=== PATIENT | male | born 2000 | race Caucasian/White ===

== ENCOUNTER 2020-12-30 09:21 | Inpatient (IN) ==
[2020-12-30] MEDS ORDERED: cefTRIAXone SODIUM 2,000 MG/70 ML BAG IV STA (10:35)
--- NOTE | 2020-12-30 10:35 | Emergency Department Note ---
Impression & Plan Preseptal cellulitis of right eye, Facial abscess ED Provider Note NAME: JACK MEHTA AGE: 20 SEX: M : 2000 ARRIVES VIA: Walk-In INFORMANT: Patient ED PROVIDER(S): Alvin Rey DO CHIEF COMPLAINT: right facial swelling HPI: Patient is a 18-year-old male who presents the ER for swelling around his right eye. This started last night. He noticed a bump with swelling at the bridge of his nose this past Tuesday. It has progressed from there. He denies any fevers. No pain with range of motion of his eye. No headache. No chest pain shortness of breath nausea vomiting or diarrhea. No other exacerbating or remitting factors. He notes he cannot see due to the swelling but if he cries his eyes open he has no change in vision. No pain in the mouth. ROS: See above HPI for pertinent positives & negatives. A total of 10 systems reviewed and were otherwise negative. PAST MEDICAL HISTORY:See Below PAST SURGICAL HISTORY:See Below FAMILY HISTORY:See Below SOCIAL HISTORY:See Below HOME MEDICATIONS:See Below ALLERGIES:See Below VITALS:See Below PHYSICAL EXAMINATION: GENERAL: Sitting up in bed, alert, well appearing, well nourished, no distress, non-toxic FACE: Swelling around the right orbit and over the bridge of the nose. Right eye completely swollen shut. Has some swelling coming down the right anterior cheek. Mild erythema over right upper orbit and over the anterior cheek as well as the bridge of the nose. Slightly painful to palpation. EYE EXAM: normal conjunctiva. PERRL and EOM's grossly intact. OROPHARYNX: no exudate, no erythema, lips, buccal mucosa, and tongue normal and mucous membranes are moist LUNGS: Clear to auscultation. Normal chest wall mechanics HEART: no murmurs, S1 normal and S2 normal ABDOMEN: abdomen soft, non-tender, normo-active bowel sounds, no masses, no rebound or guarding. UPPER EXTREMITIES: upper extremities are grossly normal. LOWER EXTREMITIES: No pitting edema. NEURO EXAM: Normal sensorium, cranial nerves II-XII grossly intact, normal speech, no gross weakness of arms, no gross weakness of legs. MEDICAL DECISION MAKING: Patient is a 18-year-old male who presents the ER for right preseptal cellulitis referred in by [facility]. On exam he is unable to open his right eye due to swelling. Does appear to have an abscess on the bridge of his nose. IV estab lished blood work was obtained.Labs showed no significant leukocytosis or anemia. BMP with LFTs bilirubin was unremarkable. Covid was negative. CT of the face confirms preseptal cellulitis with an abscess. I performed incision and drainage at bedside. Patient was given 2 g Rocephin. He was given IV fluids. Swelling improved significantly. Patient was updated bedside. Discussed the hospitalist admit to Dr. Marimar Segura for further treatment. Triage Nursing notes reviewed. Limited review of prior medical records performed Vital Signs: reviewed and remarkable for HTN Differential diagnosis: Cellulitis, abscess, MRSA infection, DVT, necrotizing fasciitis, dermatitis, drug eruption, allergic reaction, as well as other pathologies. ER treatment provided: See below Diagnostics interpreted by me: ECG: none Cardiac Monitoring: An order was placed for continuous cardiac monitoring. The monitor shows a rate of 71 with sinus rhythm. Laboratory studies: As stated above and show below. Imaging studies: CT face shows preseptal cellulitis with an abscess Consultation(s): none Procedures: Incision & Drainage Indication: Abscess. Location: Abscess over the bridge of the nose Verbal consent was obtained after the risks and benefits were explained, including but not limited to bleeding, scarring, infection, pain, and bone /joint/nerve damage. At this time, the risks of the procedure are less than the risks of NOT performing the procedure. A time out was taken and the correct patient and site identified. The skin was prepped with betadine and a sterile field set. The wound was anesthetized with 2 mL ml of 1% lidocaine. The abscess cavity was entered with a number 11 blade and green purulent material expressed. The wound was explored for foreign bodies and none found. Debridement was not performed. Detailed wound care instructions and signs and symptoms of worsening infection reviewed with the patient. No complications and the patient tolerated the procedure well. 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 Feels Safe at Home: Yes Allergies Allergies Allergy/AdvReac Type Severity Reaction Status Date / Time mushroom AdvReac Severe Anaphylaxis Unverified 12/30/20 11:55 Home Meds Home Medications Medication Instructions Recorded Confirmed cetirizine [Zyrtec] 10 mg PO QAM 12/30/20 12/30/20 epinephrine [Epi E-Z Pen] 0.3 mg IM Q4H PRN 12/30/20 12/30/20 Results & Data (ED) Vital Signs Vital Signs - 24 hr 12/30/20 09:26 12/30/20 11:13 12/30/20 12:23 Temperature 36.8 C Temperature Source Temporal Artery Scan Pulse Rate 82 Pulse Rate [Finger] 85 78 Respiratory Rate 18 16 18 Respiratory Effort / Characteristics Non-Labored Non-Labored Respiratory Depth Normal Normal Respiratory Pattern Blood Pressure 143/76 H Blood Pressure [Right Arm] 96/65 L 120/79 Blood Pressure Mean 98 Blood Pressure Mean [Right Arm] 75 92 Blood Pressure Position Sitting Blood Pressure Position [Right Arm] Pulse Oximetry 98 99 99 Oxygen Delivery Method Room Air Room Air Sepsis Recent Fever Within 48 Hours No Sepsis New/Unexplained Change in Mental Status No Sepsis Action Taken by Nursing No Action Required 12/30/20 14:05 12/30/20 15:42 Temperature Temperature Source Pulse Rate Pulse Rate [Finger] 79 74 Respiratory Rate 20 18 Respiratory Effort / Characteristics Non-Labored Spontaneous Non-Labored Spontaneous Respiratory Depth Normal Normal Respiratory Pattern Regular Blood Pressure Blood Pressure [Right Arm] 112/70 125/73 Blood Pressure Mean Blood Pressure Mean [Right Arm] 84 90 Blood Pressure Position Blood Pressure Position [Right Arm] Sitting Pulse Oximetry 100 99 Oxygen Delivery Method Room Air Room Air Sepsis Recent Fever Within 48 Hours Sepsis New/Unexplained Change in Mental Status Sepsis Action Taken by Nursing Laboratory Data Result diagrams: 12/30/20 10:32 12/30/20 10:32 Lab Results 12/30/20 12/30/20 12/30/20 Range/Units 10:32 10:32 12:24 WBC 7.21 (4.8-10.8) K/uL RBC 4.99 (4.7-6.1) M/uL Hgb 14.6 (14.0-18.0) g/dL Hct 43.1 (42-52) % MCV 86.4 (80-100) fL MCH 29.3 (25-34) pg MCHC 33.9 (32-36) g/dL RDW Std Deviation 40.9 (36.4-46.3) fL RDW Coeff of Emile 12.9 (11.5-14.5) % Plt Count 288 (130-400) K/uL MPV 8.8 (7.4-10.4) fL Immature Gran % (Auto) 0.3 % Neut % (Auto) 62.4 % Lymph % (Auto) 26.5 % [place] % (Auto) 8.3 % Eos % (Auto) 2.4 % Baso % (Auto) 0.1 % Neut # (Auto) 4.50 (1.4-6.5) K/uL Lymph # (Auto) 1.91 (1.2-3.4) K/uL [place] # (Auto) 0.60 H (0.11-0.59) K/uL Eos # (Auto) 0.17 (0-0.5) K/uL Baso # (Auto) 0.01 (0-0.2) K/uL Immature Gran # (Auto) 0.02 (0.00-0.02) K/uL Sodium 138 (136-145) mmol/L Potassium 4.5 (3.5-5.1) mmol/L Chloride 106 (98-107) mmol/L Carbon Dioxide 30 (21-32) mmol/L Anion Gap 2.0 L (3-11) BUN 14 (7-18) mg/dl Creatinine 0.68 (0.6-1.4) mg/dl Est Cr Clr Drug Dosing 217.6 ml/min Est GFR ( Amer) > 150.0 Est GFR (Non-Af Amer) 135.6 BUN/Creatinine Ratio 20.9 H (10-20) Glucose 93 (70-99) mg/dl Calcium 9.2 (8.5-10.1) mg/dl Total Bilirubin 0.3 (0.2-1) mg/dl AST 14 L (15-37) U/L ALT 38 (12-78) U/L Alkaline Phosphatase 131 H (45-117) U/L Total Protein 8.2 (6.4-8.2) gm/dl Albumin 4.0 (3.4-5.0) gm/dl Globulin 4.2 H (2.5-4.0) gm/dl Albumin/Globulin Ratio 1.0 (0.9-2) COVID-19 Eval Order CovFluRsv at [facility] SARS-CoV-2 (PCR) (Negative) Influenza Type A (PCR) (Neg) Influenza Type B (PCR) (Neg) RSV (RT-PCR) (Neg) 12/30/20 Range/Units 12:24 WBC (4.8-10.8) K/uL RBC (4.7-6.1) M/uL Hgb (14.0-18.0) g/dL Hct (42-52) % MCV (80-100) fL MCH (25-34) pg MCHC (32-36) g/dL RDW Std Deviation (36.4-46.3) fL RDW Coeff of Emile (11.5-14.5) % Plt Count (130-400) K/uL MPV (7.4-10.4) fL Immature Gran % (Auto) % Neut % (Auto) % Lymph % (Auto) % [place] % (Auto) % Eos % (Auto) % Baso % (Auto) % Neut # (Auto) (1.4-6.5) K/uL Lymph # (Auto) (1.2-3.4) K/uL [place] # (Auto) (0.11-0.59) K/uL Eos # (Auto) (0-0.5) K/uL Baso # (Auto) (0-0.2) K/uL Immature Gran # (Auto) (0.00-0.02) K/uL Sodium (136-145) mmol/L Potassium (3.5-5.1) mmol/L Chloride (98-107) mmol/L Carbon Dioxide (21-32) mmol/L Anion Gap (3-11) BUN (7-18) mg/dl Creatinine (0.6-1.4) mg/dl Est Cr Clr Drug Dosing ml/min Est GFR ( Amer) Est GFR (Non-Af Amer) BUN/Creatinine Ratio (10-20) Glucose (70-99) mg/dl Calcium (8.5-10.1) mg/dl Total Bilirubin (0.2-1) mg/dl AST (15-37) U/L ALT (12-78) U/L Alkaline Phosphatase (45-117) U/L Total Protein (6.4-8.2) gm/dl Albumin (3.4-5.0) gm/dl Globulin (2.5-4.0) gm/dl Albumin/Globulin Ratio (0.9-2) COVID-19 Eval Order SARS-CoV-2 (PCR) NEGATIVE (Negative) Influenza Type A (PCR) Negative (Neg) Influenza Type B (PCR) Negative (Neg) RSV (RT-PCR) Negative (Neg) Administered Medications Vancomycin HCl 2,500 mg/ (Sodium Chloride) 550 mls @ 200 mls/hr IV NOW STA Stop: 12/30/20 18:17 Last Admin: 12/30/20 15:40 Dose: 200 mls/hr Documented by: [id number] Miscellaneous Information (Vancomycin Consult Active) 1 ea N/A UD PRN PRN Reason: Consult Stop: 01/29/21 14:32 Last Admin: 12/30/20 15:40 Dose: 1 ea Documented by: [id number] Discontinued Medications Ceftriaxone Sodium (Rocephin) 2,000 mg in 70 mls @ 140 mls/hr IV NOW STA Stop: 12/30/20 11:04 Last Infusion: 12/30/20 11:20 Dose: 0 mls/hr Documented by: [id number] Admin: 12/30/20 10:51 Dose: 140 mls/hr Documented by: [id number] Ioversol (Optiray 300 100ml) 89 ml IV ONCE ONE Stop: 12/30/20 11:27 Last Admin: 12/30/20 11:26 Dose: 89 ml Documented by: [id number] Lidocaine HCl (Xylocaine 1%/Sod Bicarb 20 Ml Vial) Confirm Administered Dose 20 ml INFIL .STK-MED ONE Stop: 12/30/20 13:22 Last Admin: 12/30/20 13:46 Dose: 20 ml Documented by: [id number] Imaging Data Radiologist's Impression: Face CT 12/30/20 10:35 CT facial bones w con CLINICAL HISTORY: swelling over the face/right eye and bridge of nose COMPARISON STUDY: No previous studies for comparison. TECHNIQUE: Axial images through the face were obtained following intravenous injection of 89 cc of Optiray 300. Sagittal and coronal reconstructions were viewed. Automated exposure control was utilized for the study. A dose lowering technique was utilized adhering to the principles of ALARA. FINDINGS: Visualized portions of the intracranial contents are unremarkable. Major vasculature of the upper neck is patent. Globes are intact. There is no retrobulbar infiltration or fluid collection. Note is made of soft tissue thickening and enhancement along the medial aspect of the right orbit and right aspect of the nose centered within the right medial epicanthus and right nasolacrimal duct which is partially opacified. No post septal component is noted. Note is made of a small 6 mm rim enhancing subcutaneous fluid collection of the right upper aspect of the nose. No additional fluid collections are identified. No soft tissue gas. Left orbit is unremarkable. Minimal mucosal thickening of the right maxillary sinus is present. Mastoid air cells are clear. IMPRESSION: Moderate right preseptal inflammation as well as inflammation along the right aspect of the nose centered within the right medial epicanthus and right nasolacrimal duct which is partially opacified. Associated small 6 mm subcutaneous rim enhancing fluid collection of the right nose consistent with an abscess. Findings suggest an infectious process and may reflect right-sided dacrocystitis. No postseptal component. ACT 112: Negative or not required by law. Electronically signed by: Jaime Nichols M.D. 12/30/2020 11:59 AM Discharge Plan Visit Data Chief Complaint: Facial Injury/Pain Stated Complaint: SWELLING IN LEFT EYE ED Provider: Alvin Rey Discharge Problem: Preseptal cellulitis of right eye, Facial abscess Forms Stand Alone Forms: My [facility] Prescriptions Prescriptions: No Action cetirizine [Zyrtec] 10 mg Tablet 10 mg PO QAM RF: 0 epinephrine [Epi E-Z Pen] 0.3 mg/0.3 mL Auto-Injector 0.3 mg IM Q4H PRN (Reason: Anaphylaxis) RF: 0
[2020-12-30 10:44] LABS: Basophils # (auto) 0.01 K/uL (0-0.2); Basophils % (auto) 0.1 %; Eosinophils # (auto) 0.17 K/uL (0-0.5); Eosinophils % (auto) 2.4 %; Hematocrit (blood only) 43.1 % (42-52); Hemoglobin 14.6 g/dL (14.0-18.0); Immature Granulocytes # (auto) 0.02 K/uL (0.00-0.02); Immature Granulocytes % (auto) 0.3 %; Lymphocytes # (auto) 1.91 K/uL (1.2-3.4); Lymphocytes % (auto) 26.5 %; Mean Corpuscular Hemoglobin 29.3 pg (25-34); Mean Corpuscular Hgb Conc 33.9 g/dL (32-36); Mean Corpuscular Volume 86.4 fL (80-100); Mean Platelet Volume 8.8 fL (7.4-10.4); Monocytes % (auto) 8.3 %; Neutrophils % (auto) 62.4 %; Platelet Count 288 K/uL (130-400); RDW Coefficient of Variation 12.9 % (11.5-14.5); RDW Standard Deviation 40.9 fL (36.4-46.3); Red Blood Count 4.99 M/uL (4.7-6.1); White Blood Count 7.21 K/uL (4.8-10.8)
[2020-12-30 11:06] LABS: Alanine Aminotransferase 38 U/L (12-78); Aspartate Aminotransferase 14 U/L (15-37); BUN Creatinine Ratio 20.9 (10-20); Blood Urea Nitrogen 14 mg/dl (7-18); Calcium 9.2 mg/dl (8.5-10.1); Carbon Dioxide 30 mmol/L (21-32); Chloride 106 mmol/L (98-107); Creatinine Clr Calc Pharmacy 217.6 ml/min; Est GFR (African American) > 150.0; Est GFR (Non-African American) 135.6; Glucose 93 mg/dl (70-99); Potassium 4.5 mmol/L (3.5-5.1); Sodium 138 mmol/L (136-145)
[2020-12-30 11:09] LABS: Alkaline Phosphatase 131 U/L (45-117); Bilirubin,Total 0.3 mg/dl (0.2-1); Globulin 4.2 gm/dl (2.5-4.0); Total Protein 8.2 gm/dl (6.4-8.2)
[2020-12-30] MEDS ORDERED: OPTIRAY 300 100mL IV ONE (11:26)
--- NOTE | 2020-12-30 12:01 | CT Scan Report ---
CT facial bones w con CLINICAL HISTORY: swelling over the face/right eye and bridge of nose COMPARISON STUDY: No previous studies for comparison. TECHNIQUE: Axial images through the face were obtained following intravenous injection of 89 cc of Op tiray 300. Sagittal and coronal reconstructions were viewed. Automated exposure control was utilized for the study. A dose lowering technique was utilized adhering to the principles of ALARA. FINDINGS: Visualized portions of the intracranial contents are unremarkable. Major vasculature of the upper neck is patent. Globes are intact. There is no retrobulbar infiltration or fluid collection. N ote is made of soft tissue thickening and enhancement along the medial aspect of the right orbit and right aspect of the nose centered within the right medial epicanthus and right nasolacrimal duct whic h is partially opacified. No post septal component is noted. Note is made of a small 6 mm rim enhanci ng subcutaneous fluid collection of the right upper aspect of the nose. No additional fluid collectio ns are identified. No soft tissue gas. Left orbit is unremarkable. Minimal mucosal thickening of the right maxillary sinus is present. Mastoid air cells are clear. IMPRESSION: Moderate right preseptal inflammation as well as inflammation along the right aspect of the nose centered within the right medial epicanthus and right nasolacrimal duct which is partially o pacified. Associated small 6 mm subcutaneous rim enhancing fluid collection of the right nose consist ent with an abscess. Findings suggest an infectious process and may reflect right-sided dacrocystitis . No postseptal component. ACT 112: Negative or not required by law. Electronically signed by: Jaime Nichols M.D. 12/30/2020 11:59 AM
[2020-12-30] MEDS ORDERED: XYLOCAINE 1%/SOD BICARB 20 ML VIAL INFIL ONE (13:21)
[2020-12-30 13:38] LABS: Influenza A virus by PCR Negative (Neg); Influenza B virus by PCR Negative (Neg); RSV by PCR Negative (Neg); SARS CoV2 RNA(COVID-19) InHosp NEGATIVE (Negative)
--- NOTE | 2020-12-30 14:10 | History & Physical Report ---
Date of Service December 30, 2020 Assessment & Plan (1) Preseptal cellulitis of right eye: Patient with right sided preseptal cellulitis, likely nidus was a small pimple on right side of bridge of nose No known history of MRSA With rapid progression in the last 24 hours Not septic and currently no signs of post septal cellulitis -Admit to medical/surgical floor -Continue IV antibiotics with ceftriaxone and will add on IV vancomycin -Check MRSA swab and consider discontinuing MRSA coverage if is negative -Follow CBC, BMP in the morning -Pain control Tylenol as needed -Follow-up on wound culture collected in the ER status post incision and drainage (2) Facial abscess: As above, status post incision and drainage in the ER (3) Seasonal allergies: Continue home Zyrtec No acute issues (4) DVT prophylaxis: SCDs, ambulation Disposition-admit to medical/surgical floor History of Present Illness Chief Complaint: Facial swelling and pain Primary Care Provider: NO PCP This patient is a 20-year-old male with a history of seasonal allergies who presents to the ER with swelling around his right eye that got much worse last evening. He started to notice a little bit of swelling over the bridge of his nose 4 days ago which then rapidly progressed last night and he woke up with his right eye almost swollen shut this morning. He denies any fevers/chills. He has no pain with range of motion of the eye, no change in vision. Denies any headache or lightheadedness. He has no previous history of skin or soft tissue infections and no history of MRSA that he knows of. 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 In the ER, his laboratory work-up was fairly unremarkable, but he was noted to have a significant right periorbital facial swelling and cellulitis seen in the right aspect of the nose centered within the right medial epicanthus and right nasolacrimal duct with a small 6 mm abscess seen on CT in the right nasal area without any post septal component noted. He had an incision and drainage performed with a substantial amount of pus aspirated in the ER with Gram stain and culture sent. He was given 1 dose of IV Rocephin in the ER. He will be admitted for continued IV antibiotics for preseptal cellulitis. Allergies Allergy/AdvReac Type Severity Reaction Status Date / Time mushroom AdvReac Severe Anaphylaxis Unverified 12/30/20 11:55 Home Medications Medication Instructions Recorded Confirmed Type cetirizine [Zyrtec] 10 mg PO QAM 12/30/20 12/30/20 History epinephrine [Epi E-Z Pen] 0.3 mg IM Q4H PRN 12/30/20 12/30/20 History Past Med/Surg History Medical History Lyme arthritis Seasonal allergies Surgical History H/O tympanostomy History of wisdom tooth extraction Family History Grandfather Dementia Social History Smoking Status: Never smoker Hx Alcohol Use: Yes (social use) Hx Substance Use: No current occupational status: student 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 Feels Safe at Home: Yes Review of Systems Review of Systems: All systems reviewed & are unremarkable except as noted in HPI & below Denies fevers/chills/headache, denies chest pain or shortness of breath, no abdominal pain, no nausea or vomiting, no diarrhea or constipation, no urinary symptoms, no rashes other than face Physical Exam Constitutional: WD/WN, vitals as above + obese Eyes: PERRL, conjunctivae normal, anicteric sclerae EOM intact bilaterally (Without any pain with movement) ENMT: Ears: no hearing impairment, no external ear abnormality, no EAC abnormality and no TM abnormality Nose: + external nose abnormality Positive right periorbital edema mostly medial and some infraorbital edema and right nasal edema with mild erythema, slightly open wound status post I&D right medial nose at the bridge Neck: trachea midline, no thyromegaly Respiratory: normal respiratory effort, lungs clear to auscultation Cardiovascular: RRR, no murmur, no edema Chest (Breasts): Chest: normal inspection of chest Gastrointestinal (Abdomen): normal bowel sounds, soft, nontender, no hepatosplenomegaly Musculoskeletal: Extremities: extremities normal to inspection; no cyanosis and no clubbing Skin: no rashes, warm and dry Neurologic: moves all extremities and awake; no focal motor deficits Psychiatric: A+Ox3, euthymic affect Lymphatic: no lymphedema Results & Data Results & Data ([facility]) Vital Signs (Past 12 Hours) Vital Signs Temp Pulse Pulse Resp BP BP Pulse Ox 12/30/20 12:23 78 18 120/79 99 12/30/20 11:13 85 16 96/65 L 99 12/30/20 09:26 36.8 C 82 18 143/76 H 98 Laboratory Results Laboratory Results WBC 7.21 K/uL (4.8-10.8) 12/30/20 10:32 RBC 4.99 M/uL (4.7-6.1) 12/30/20 10:32 Hgb 14.6 g/dL (14.0-18.0) 12/30/20 10:32 Hct 43.1 % (42-52) 12/30/20 10:32 MCV 86.4 fL (80-100) 12/30/20 10:32 MCH 29.3 pg (25-34) 12/30/20 10:32 MCHC 33.9 g/dL (32-36) 12/30/20 10:32 RDW Std Deviation 40.9 fL (36.4-46.3) 12/30/20 10:32 RDW Coeff of Emile 12.9 % (11.5-14.5) 12/30/20 10:32 Plt Count 288 K/uL (130-400) 12/30/20 10:32 MPV 8.8 fL (7.4-10.4) 12/30/20 10:32 Immature Gran % (Auto) 0.3 % 12/30/20 10:32 Neut % (Auto) 62.4 % 12/30/20 10:32 Lymph % (Auto) 26.5 % 12/30/20 10:32 [place] % (Auto) 8.3 % 12/30/20 10:32 Eos % (Auto) 2.4 % 12/30/20 10:32 Baso % (Auto) 0.1 % 12/30/20 10:32 Neut # (Auto) 4.50 K/uL (1.4-6.5) 12/30/20 10:32 Lymph # (Auto) 1.91 K/uL (1.2-3.4) 12/30/20 10:32 [place] # (Auto) 0.60 K/uL (0.11-0.59) H 12/30/20 10:32 Eos # (Auto) 0.17 K/uL (0-0.5) 12/30/20 10:32 Baso # (Auto) 0.01 K/uL (0-0.2) 12/30/20 10:32 Immature Gran # (Auto) 0.02 K/uL (0.00-0.02) 12/30/20 10:32 Sodium 138 mmol/L (136-145) 12/30/20 10:32 Potassium 4.5 mmol/L (3.5-5.1) 12/30/20 10:32 Chloride 106 mmol/L (98-107) 12/30/20 10:32 Carbon Dioxide 30 mmol/L (21-32) 12/30/20 10:32 Anion Gap 2.0 (3-11) L 12/30/20 10:32 BUN 14 mg/dl (7-18) 12/30/20 10:32 Creatinine 0.68 mg/dl (0.6-1.4) 12/30/20 10:32 Est Cr Clr Drug Dosing 217.6 ml/min 12/30/20 10:32 Est GFR ( Amer) > 150.0 12/30/20 10:32 Est GFR (Non-Af Amer) 135.6 12/30/20 10:32 BUN/Creatinine Ratio 20.9 (10-20) H 12/30/20 10:32 Glucose 93 mg/dl (70-99) 12/30/20 10:32 Calcium 9.2 mg/dl (8.5-10.1) 12/30/20 10:32 Total Bilirubin 0.3 mg/dl (0.2-1) 12/30/20 10:32 AST 14 U/L (15-37) L 12/30/20 10:32 ALT 38 U/L (12-78) 12/30/20 10:32 Alkaline Phosphatase 131 U/L (45-117) H 12/30/20 10:32 Total Protein 8.2 gm/dl (6.4-8.2) 12/30/20 10:32 Albumin 4.0 gm/dl (3.4-5.0) 12/30/20 10:32 Globulin 4.2 gm/dl (2.5-4.0) H 12/30/20 10:32 Albumin/Globulin Ratio 1.0 (0.9-2) 12/30/20 10:32 COVID-19 Eval Order [facility]FluRsv at [facility] 12/30/20 12:24 SARS-CoV-2 (PCR) NEGATIVE (Negative) 12/30/20 12:24 Influenza Type A (PCR) Negative (Neg) 12/30/20 12:24 Influenza Type B (PCR) Negative (Neg) 12/30/20 12:24 RSV (RT-PCR) Negative (Neg) 12/30/20 12:[address] 12/30/20 10:35 CT facial bones w con CLINICAL HISTORY: swelling over the face/right eye and bridge of nose COMPARISON STUDY: No previous studies for comparison. TECHNIQUE: Axial images through the face were obtained following intravenous injection of 89 cc of Optiray 300. Sagittal and coronal reconstructions were viewed. Automated exposure control was utilized for the study. A dose lowering technique was utilized adhering to the principles of ALARA. FINDINGS: Visualized portions of the intracranial contents are unremarkable. Major vasculature of the upper neck is patent. Globes are intact. There is no retrobulbar infiltration or fluid collection. Note is made of soft tissue thickening and enhancement along the medial aspect of the right orbit and right aspect of the nose centered within the right medial epicanthus and right nasolacrimal duct which is partially opacified. No post septal component is noted. Note is made of a small 6 mm rim enhancing subcutaneous fluid collection of the right upper aspect of the nose. No additional fluid collections are identified. No soft tissue gas. Left orbit is unremarkable. Minimal mucosal thickening of the right maxillary sinus is present. Mastoid air cells are clear. IMPRESSION: Moderate right preseptal inflammation as well as inflammation along the right aspect of the nose centered within the right medial epicanthus and right nasolacrimal duct which is partially opacified. Associated small 6 mm subcutaneous rim enhancing fluid collection of the right nose consistent with an abscess. Findings suggest an infectious process and may reflect right-sided dacrocystitis. No postseptal component. ACT 112: Negative or not required by law. Electronically signed by: Jaime Nichols M.D. 12/30/2020 11:59 AM Code Status & VTE Plan Code Status Full code VTE Prophylaxis Plan VTE Prophylaxis will be ordered: Yes PG Care Time/CCT Total # of Minutes Spent Total Time Spent with Patient: Total time spent is greater than 50% in coordin ation of care (as documented) at patient's floor/unit and/or counseling patient: Coding Level of Care Code 84134 Initial Inpt Care Lvl 2 Diagnoses Preseptal cellulitis of right eye L03.213 Facial abscess L02.01 Seasonal allergies J30.2 DVT prophylaxis Z29.9
[2020-12-30] MEDS ORDERED: VANCOMYCIN HCL 1,000 MG in SODIUM CHLORIDE 0.9% 250 ML IV SCH (14:33)
[2020-12-30] MEDS ORDERED: VANCOMYCIN CONSULT ACTIVE PRN (14:33)
[2020-12-30] MEDS ORDERED: VANCOMYCIN HCL 2,500 MG in SODIUM CHLORIDE 0.9% 500 ML IV STA (15:33)
[2020-12-30] MEDS ORDERED: ACETAMINOPHEN 325 MG TAB PO PRN (17:20)
[2020-12-30] MEDS ORDERED: ONDANSETRON INJ 2 MG/ML 2 ML VIAL IV PRN (17:20)
[2020-12-30] MEDS ORDERED: EPINEPHrine INJ 1 MG/ML AMP IM PRN (17:20)
[2020-12-30] MEDS ORDERED: POLYETHYLENE (MIRALAX) 17 GM PACK PO PRN (17:20)
--- NOTE | 2020-12-30 18:08 | Pharmacy Report ---
Pharmacy Abx Dose Short Note - Date of Service December 30, 2020 - Assessment & Plan Assessment 20 year admitted with worsening swelling around right eye. Vancomycin and rocephin started for possible right periorbital facial swelling/cellulitis. Blood cultures x 2 are pending. Plan Vancomycin * Received loading dose of vancomycin 2500 mg x 1 in the ER (~23 mg/kg/dose) * Plan to start vancomycin 1500 (~14 mg/kg) iv q 8 hrs to achieve estimated trough ~15-20 mcg/ml (goal d/t location of cellulitis) * Estimated kinetics t1/2<8 hrs, CrCl >200 * Plan to order level if vancomycin is to be continued >48 hrs Pharmacy will continue to follow and will adjust dose/frequency as necessary. Thank you.
[2020-12-31] MEDS: VANCOMYCIN HCL 1,500 MG in SODIUM CHLORIDE 0.9% 500 ML IV SCH ×2 (00:27→08:18)
[2020-12-31 05:57] LABS: Basophils # (auto) 0.01 K/uL (0-0.2); Basophils % (auto) 0.2 %; Eosinophils % (auto) 4.1 %; Hematocrit (blood only) 40.4 % (42-52); Hemoglobin 13.6 g/dL (14.0-18.0); Lymphocytes # (auto) 1.65 K/uL (1.2-3.4); Lymphocytes % (auto) 33.7 %; Mean Corpuscular Hgb Conc 33.7 g/dL (32-36); Mean Corpuscular Volume 86.1 fL (80-100); Mean Platelet Volume 8.7 fL (7.4-10.4); Monocytes % (auto) 8.2 %; Neutrophils # (auto) 2.63 K/uL (1.4-6.5); Neutrophils % (auto) 53.8 %; Platelet Count 295 K/uL (130-400); Red Blood Count 4.69 M/uL (4.7-6.1); White Blood Count 4.89 K/uL (4.8-10.8)
[2020-12-31 06:33] LABS: BUN Creatinine Ratio 19.2 (10-20); Blood Urea Nitrogen 13 mg/dl (7-18); Calcium 9.1 mg/dl (8.5-10.1); Carbon Dioxide 27 mmol/L (21-32); Chloride 107 mmol/L (98-107); Creatinine Clr Calc Pharmacy 223.9 ml/min; Est GFR (African American) > 150.0; Est GFR (Non-African American) 137.2; Glucose 91 mg/dl (70-99); Potassium 4.1 mmol/L (3.5-5.1); Sodium 138 mmol/L (136-145)
--- NOTE | 2020-12-31 08:17 | Hospitalist Progress Note ---
Date of Service December 31, 2020 Assessment & Plan (1) Preseptal cellulitis of right eye: Patient with right sided preseptal cellulitis, likely nidus was a small pimple on right side of bridge of nose No known history of MRSA With rapid progression in the last 24 hours Not septic and currently no signs of post septal cellulitis -Admit to medical/surgical floor -Continue IV antibiotics with ceftriaxone and will add on IV vancomycin -Check MRSA swab and consider discontinuing MRSA coverage if is negative -Follow CBC, BMP in the morning -Pain control Tylenol as needed -Follow-up on wound culture collected in the ER status post incision and drainage (2) Facial abscess: As above, status post incision and drainage in the ER (3) Seasonal allergies: Continue home Zyrtec No acute issues (4) DVT prophylaxis: SCDs, ambulation Disposition-admit to medical/surgical floor Admission and Anticipated Discharge Date Admission Date: December 30, 2020 Results & Data Results & Data ([facility]) Vital Signs (Past 12 Hours) Vital Signs Temp Pulse Resp BP Pulse Ox 12/31/20 08:08 97.9 F 76 18 126/80 97 12/30/20 22:37 98.1 F 68 18 115/73 96 PG Care Time/CCT Total # of Minutes Spent Total Time Spent with Patient: Total time spent is greater than 50% in coordination of care (as documented) at patient's floor/unit and/or counseling patient: Coding Diagnoses Preseptal cellulitis of right eye L03.213 Facial abscess L02.01 Seasonal allergies J30.2 DVT prophylaxis Z29.9
[2020-12-31] MEDS ORDERED: CETIRIZINE HCL 10 MG TABLET PO SCH (09:00)
[2020-12-31] MEDS ORDERED: cefTRIAXone SODIUM 2,000 MG in DEXTROSE 5% 50 ML IV SCH ×2 (09:00→11:00)
--- NOTE | 2020-12-31 11:06 | Discharge Summary ---
Date of Service December 31, 2020 Admission HPI Per Admitting Provider This patient is a 20-year-old male with a history of seasonal allergies who presents to the ER with swelling around his right eye that got much worse last evening. He started to notice a little bit of swelling over the bridge of his nose 4 days ago which then rapidly progressed last night and he woke up with his right eye almost swollen shut this morning. He denies any fevers/chills. He has no pain with range of motion of the eye, no change in vision. Denies any headache or lightheadedness. He has no previous history of skin or soft tissue infections and no history of MRSA that he knows of. 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 In the ER, his laboratory work-up was fairly unremarkable, but he was noted to have a significant right periorbital facial swelling and cellulitis seen in the right aspect of the nose centered within the right medial epicanthus and right nasolacrimal duct with a small 6 mm abscess seen on CT in the right nasal area without any post septal component noted. He had an incision and drainage performed with a substantial amount of pus aspirated in the ER with Gram stain and culture sent. He was given 1 dose of IV Rocephin in the ER. He will be admitted for continued IV antibiotics for preseptal cellulitis. Principal Diagnosis pre septal cellulitis Discharge Exam face is slightly swollen and not erythematous or flucutant small open area the size of a pea on his nose near where it ajoins his forehead more on the right side no visual changes , can fully open eyes Discharge Data Allergies Allergy/AdvReac Type Severity Reaction Status Date / Time mushroom AdvReac Severe Anaphylaxis Unverified 12/30/20 11:55 Consultations 12/30/20 12:21 ED Decision to Admit Stat Ordered Studies 12/30/20 10:35 CT facial bones w con Stat Hospital Course (1) Preseptal cellulitis of right eye: Patient with right sided preseptal cellulitis, likely nidus was a small pimple on right side of bridge of nose No known history of MRSA With rapid progression in the last 24 hours Not septic and currently no signs of post septal cellulitis -Pain control Tylenol as needed (2) Facial abscess: As above, status post incision and drainage in the ER (3) Seasonal allergies: Continue home Zyrtec No acute issues (4) DVT prophylaxis: SCDs, ambulation Disposition-admit to medical/surgical floor Total Time Total Time Spent Total Time Spent (In Minutes): greater than 30 minutes were required to prepare discharge Discharge Plan Discharge Items Patient Disposition: Home - Self-Care Reason For Visit: PRESEPTAL CELLULITIS Discharge Diagnosis: infection of face around eye Activity: Resume your previous activity Non-emergency contact: Primary Care Provider Call non-emergency contact if: you have any medication questions and your symptoms worsen Follow-up/Referrals: PCP,NO [Primary Care Provider] - Diet: Regular Addtl Attending Provider Instructions: please wash face twice a day with a gentle soap and use antibiotic ointment to open area after drying completely, only do this while the are is open. complete all antibiotics please see [facility] this week Pending Studies at Discharge: Yes Stand-Alone Forms: My [facility] [employer], Smoking Cessation Medications and DC Order Prescriptions: New doxycycline hyclate 100 mg capsule 100 mg PO BID 10 Days Qty: 20 RF: 0 Continued cetirizine [Zyrtec] 10 mg Tablet 10 mg PO QAM RF: 0 epinephrine [Epi E-Z Pen] 0.3 mg/0.3 mL Auto-Injector 0.3 mg IM Q4H PRN (Reason: Anaphylaxis) RF: 0 Discharge Orders: Discharge Order (Routine); Ordered 12/31/20 Ordered By: Jose Sims Admission Data Admit Date/Time: 12/30/20 14:33 Attending Provider: Jose Sims Admit Provider: Marimar Segura Primary Care Provider: PCP,NO Other Providers: Marimar Segura Coding Level of Care Code D/C Day Management >30 mins Diagnoses Preseptal cellulitis of right eye L03.213 Facial abscess L02.01 Seasonal allergies J30.2 DVT prophylaxis Z29.9
[2020-12-31] MEDS ORDERED: VANCOMYCIN TROUGH ONE (23:30)
== END 2020-12-31 11:45 | disposition home or self-care (01) | DRG 603 ==
LOC: ED 09:21 → 3N 14:33 → SUATTDRO 14:33 → 3N 17:01